=== PATIENT | female | born 1990 | race Caucasian/White ===

== ENCOUNTER → 2019-06-22 16:13 | Outpatient (BNVA) | payer MEDICAID, SELFPAY | PROVIDERS: Family Provider Nurse Practitioner; PCP Nurse Practitioner; Visit Provider Nurse Practitioner Family | DX: N92.6 Irregular menstruation, unspecified (principal); N93.9 Abnormal uterine and vaginal bleeding, unspecified; F41.9 Anxiety disorder, unspecified | CPT/HCPCS: 81025 ==

== ENCOUNTER → 2019-10-19 12:11 | Outpatient (BNVA) | payer SELFPAY | PROVIDERS: Family Provider Nurse Practitioner; PCP Nurse Practitioner; Visit Provider Nurse Practitioner Family | DX: R20.0 Anesthesia of skin (principal); R20.2 Paresthesia of skin; R42 Dizziness and giddiness; F41.9 Anxiety disorder, unspecified; R06.02 Shortness of breath; M25.50 Pain in unspecified joint; I10 Essential (primary) hypertension | CPT/HCPCS: 80053; 82607; 83735; 84443; 84702; 85025; 85379; 85651; 86140 ==

== ENCOUNTER 2019-10-20 13:41 | Emergency (ER) | payer SELFPAY ==
[2019-10-20] VITALS (7 sets, daily range): BP systolic 123–171; BP diastolic 77–103; PULSE 73–88; RESP 16–18; TEMP 36.7; O2SAT 97–98; BMI 37.0
--- NOTE | 2019-10-20 14:00 | CTR_ITS ---
PROCEDURE INFORMATION: Exam: CT Head Without Contrast Exam date and time: 10/20/2019 4:19 PM Age: 29 years old Clinical indication: Pain; Headache not specified; Patient HX: C/ intermittent R facial numbness and PALOMARES x 1 week - started new meds TECHNIQUE: Imaging protocol: Computed tomography of the head without contrast. Axial, coronal and sagittal reformatted images were created and reviewed. Radiation optimization: All CT scans at this facility use at least one of these dose optimization techniques: automated exposure control; mA and/or kV adjustment per patient size (includes targeted exams where dose is matched to clinical indication); or iterative reconstruction. COMPARISON: No relevant prior studies available. RADIATION DOSE METRICS: Total DLP: 827.21 mGy-cm FINDINGS: Brain: No CT evidence of acute intracranial hemorrhage or acute territorial infarction. No significant mass effect or midline shift. Basal cisterns patent. Ventricles: Normal in size and configuration. Cavum septum pellucidum. Bones/joints: No acute osseous abnormality. Sinuses: Minimal ethmoid and left maxillary sinus mucosal thickening.. Mastoid air cells: Grossly unremarkable. Soft tissues: Grossly unremarkable. CT/CT head wo con* [id number] IMPRESSION: 1. No CT evidence of acute intracranial pathology. 2. Additional findings, as above. Radiation Dose CTDIVOL = (mGy): DLP = 827.21 (mGy-cm)
--- NOTE | 2019-10-20 14:02 | W.ED.GENADLT ---
Documented by User: KATALINA Mclean 10/20/19 14:04 HPI - General Adult General: Chief complaint: General Medical Stated complaint: NUMBNESS/NEW BP MED Time Seen by Provider: 10/20/19 13:46 History of Present Illness: HPI narrative: Patient complains about numbness right side of her face body last few days was seen by her provider yesterday was started on fluoxetine for anxiety test were ordered patient waiting those test patient blood pressure is up to so she started her on blood pressure medication patient says numbness down the right side of face is worse today Onset (ago): day(s) Location: face Associated symptoms: Reports other (Anxiety hypertension); Deny chest pain, dyspnea, headache(s), nausea, rash or vomiting Review of Systems Const: Denies: fever(s), chills or body aches Eyes: Denies: change in vision or blurry vision ENMT: Denies: throat pain or nasal congestion Card: Denies: chest pain or dyspnea on exertion Resp: Denies: dyspnea, productive cough or non-productive cough GI: Denies: abdominal pain, nausea or vomiting Musc: Denies: extremity pain Skin/Breast: Denies: rash Neuro: Reports: other (Complains of numb-like feeling in her face down the right side of her body at times numbness and goes worse the last few hours); Denies: headache(s) Psych: Denies: anxiety or depression Guillaume/Lymph: Denies: easy bruising PFSH ED PFSH: Social History (Updated 10/19/19 @ 11:04 by Lotus Joseph LPN, RT) Smoking and tobacco status: former smoker Quit status (tobacco): has quit using tobacco Year quit tobacco: 2016 Former quit date comment: smoked 0.25 PPD x 15 yrs Second hand smoke exposure: Yes Alcohol intake: never Lives independently: Yes Household members: spouse and children Marital status: Current occupational status: employed Current occupation: [employer] History of recent travel: No Current gender identity: Female Special carmelina needs: No Agree to transfusion: Yes Physical Exam Const: COMMON NORMALS: no acute distress, average body habitus and patient oriented x3 HENMT: COMMON NORMALS: normocephalic HEAD & SCALP: normal to inspection and normocephalic FACE & SINUS: normal facial exam Eye: COMMON NORMALS: conjunctivae normal GENERAL EYE: appearance normal, both eyes and all related structures CONJUNCTIVA: Yes conjunctivae normal Neck/C-Spine: COMMON NORMALS: no JVD Chest: COMMONS NORMALS: normal inspection of the chest Resp: COMMON NORMALS: normal respiratory effort and clear to auscultation bilaterally AUSCULTATION: clear to auscultation bilaterally Cardio: COMMON NORMALS: no JVD, regular rate and regular rhythm RATE: regular rate RHYTHM: regular rhythm GI: COMMON NORMALS: Normal to inspection, nondistended, normoactive bowel sounds present Extremity: COMMON NORMALS: normal to inspection and full ROM Neuro: COMMON NORMALS: patient oriented x3, CN's II-XII intact bilaterally, moves all extremities, no focal motor deficits, no sensory deficits noted and gait normal Course Vital Signs: Vital signs: Vital Signs Temperature 98.0 F 10/20/19 13:46 Pulse Rate 73 10/20/19 17:41 Respiratory Rate 17 10/20/19 17:41 Blood Pressure 132/79 10/20/19 17:41 Pulse Oximetry 97 10/20/19 17:41 [facility] - General Adult Lab Data: Labs: Lab Results 10/20/19 10/20/19 10/20/19 Range/Units 13:55 13:55 14:20 WBC 6.9 (4.0-10.0) 10^3/ uL RBC 5.42 H (4.1-5.3) 10^6/u L Hgb 14.0 (11.5-15.3) g/dL Hct 43.4 (37.0-47.0) % MCV 80.1 L (81-99) fL MCH 25.8 L (28.0-34.0) pg MCHC 32.3 (30.0-36.0) g/dL RDW 13.5 (12.1-15.1) % Plt Count 268 (130-400) 10^3/c mm MPV 10.4 (7.4-10.4) fL Neut % (Auto) 57.5 % Lymph % (Auto) 32.1 % [place] % (Auto) 8.4 % Eos % (Auto) 1.2 % Baso % (Auto) 0.4 % Neut # (Auto) 4.0 (1.8-7.7) 10^3/u L Lymph # (Auto) 2.2 (0.8-4.8) 10^3/u L [place] # (Auto) 0.6 (0.2-0.9) 10^3/u L Eos # (Auto) 0.1 (0.0-0.8) 10^3/u L Baso # (Auto) 0.0 (0.0-0.1) 10^3/u L Nucleated RBC % (a uto) 0 % Nucleated RBCs # 0.0 /100WBC Sodium 138 (136-145) mmol/L Potassium 4.1 (3.5-5.1) mmol/L Chloride 103 (98-107) mmol/L Carbon Dioxide 22 (22-29) mmol/L Anion Gap 17.1 (5-19) BUN 9 (6-20) mg/dL Creatinine 0.6 (0.5-0.9) mg/dL GFR Calculation 116.6 (90-130) mL/min Glucose 98 (65-115) mg/dL Calculated Osmolal ity 282 L (285-295) mOsm/k g Calcium 9.8 (8.5-10.5) mg/dL Total Bilirubin 0.4 (0.15-1.2) mg/dL AST 19 (0-32) U/L ALT 22 (0-33) U/L Alkaline Phosphata se 59 (35-105) IU/L Total Protein 7.6 (6.6-8.7) g/dL Albumin 5.0 (3.5-5.2) g/dL Globulin 2.6 (1.3-4.6) g/dL HCG, Qual (Negative) Urine Color Yellow (Yellow) Urine Appearance Hazy A (CLEAR) Urine pH 5 (5-7) Ur Specific Gravit y 1.025 (1.005-1.030) Urine Protein Neg (Negative) Urine Glucose (UA) Norm (Normal) Urine Ketones 2+ H (Negative) Urine Blood Neg (Negative) Urine Nitrate Negative (Negative) Urine Bilirubin Neg (NEGATIVE) Urine Urobilinogen 1 H (Negative) mg/dL Ur Leukocyte Anahi ase 2+ H (Negative) Urine RBC None (0-2) /hpf Urine WBC 15-25 H (0-5) /hpf Ur Squamous Epith Cells 25-40 H (0-5) Urine Bacteria 2+ H (NONE) 06/13/20 Range/Units 14:20 WBC (4.0-10.0) 10^3/ uL RBC (4.1-5.3) 10^6/u L Hgb (11.5-15.3) g/dL Hct (37.0-47.0) % MCV (81-99) fL MCH (28.0-34.0) pg MCHC (30.0-36.0) g/dL RDW (12.1-15.1) % Plt Count (130-400) 10^3/c mm MPV (7.4-10.4) fL Neut % (Auto) % Lymph % (Auto) % [place] % (Auto) % Eos % (Auto) % Baso % (Auto) % Neut # (Auto) (1.8-7.7) 10^3/u L Lymph # (Auto) (0.8-4.8) 10^3/u L [place] # (Auto) (0.2-0.9) 10^3/u L Eos # (Auto) (0.0-0.8) 10^3/u L Baso # (Auto) (0.0-0.1) 10^3/u L Nucleated RBC % (a uto) % Nucleated RBCs # /100WBC Sodium (136-145) mmol/L Potassium (3.5-5.1) mmol/L Chloride (98-107) mmol/L Carbon Dioxide (22-29) mmol/L Anion Gap (5-19) BUN (6-20) mg/dL Creatinine (0.5-0.9) mg/dL GFR Calculation (90-130) mL/min Glucose (65-115) mg/dL Calculated Osmolal ity (285-295) mOsm/k g Calcium (8.5-10.5) mg/dL Total Bilirubin (0.15-1.2) mg/dL AST (0-32) U/L ALT (0-33) U/L Alkaline Phosphata se (35-105) IU/L Total Protein (6.6-8.7) g/dL Albumin (3.5-5.2) g/dL Globulin (1.3-4.6) g/dL HCG, Qual Negative (Negative) Urine Color (Yellow) Urine Appearance (CLEAR) Urine pH (5-7) Ur Specific Gravit y (1.005-1.030) Urine Protein (Negative) Urine Glucose (UA) (Normal) Urine Ketones (Negative) Urine Blood (Negative) Urine Nitrate (Negative) Urine Bilirubin (NEGATIVE) Urine Urobilinogen (Negative) mg/dL Ur Leukocyte Anahi ase (Negative) Urine RBC (0-2) /hpf Urine WBC (0-5) /hpf Ur Squamous Epith Cells (0-5) Urine Bacteria (NONE) Discharge Plan Discharge Patient Disposition: Home, Self-Care Clinical Impression: Numbness and tingling Condition: Stable Prescriptions: No Action metoprolol succinate 50 mg tablet extended release 24 hr 50 mg PO DAILY Qty: 30 RF: 2 hydroxyzine HCl 50 mg tablet 50 mg PO TID PRN (Reason: anxiety) Qty: 20 RF: 0 fluoxetine [Prozac] 20 mg capsule 20 mg PO DAILY Qty: 30 RF: 2 norgestimate-ethinyl estradiol [Sprintec (28)] 0.25-35 mg-mcg tablet 1 tab PO DAILY Qty: 28 RF: 9 Discharge Orders: Discharge Order (Routine); Ordered 10/20/19 Ordered By: Gonzalez Garcia Referrals: Kari Brown FNP-C [Primary Care Provider] - Discharge Diet: Usual diet Discharge Activity: Increase activity as tolerated Activity Restrictions/Additional Instructions: Continue with routine medications. Drink plenty of water. Follow-up with primary care on Tuesday. Return to the ER for worsening symptoms or new concerns. Coding Level of Care Code ED Die Attacher for Chg Fwd Exam Comprehensive Documented by User: KATALINA West 10/20/19 18:06 HPI - General Adult General: Chief complaint: General Medical Stated complaint: NUMBNESS/NEW BP MED Time Seen by Provider: 10/20/19 13:46 PFSH ED PFSH: Social History (Updated 10/19/19 @ 11:04 by Lotus Young, CHIP MACHINE OPERATOR, RT) Smoking and tobacco status: former smoker Quit status (tobacco): has quit using tobacco Year quit tobacco: 2016 Former quit date comment: smoked 0.25 PPD x 15 yrs Second hand smoke exposure: Yes Alcohol intake: never Lives independently: Yes Household members: spouse and children Marital status: Current occupational status: employed Current occupation: [employer] History of recent travel: No Current gender identity: Female Special carmelina needs: No Agree to transfusion: Yes Course ED course: 1700, received patient from Donta Smith, nurse practitioner, we are awaiting CT scan of the head to rule out any brain pathology such as tumor, or hemorrhage. Patient is expected to be discharged to home with follow-up. Patient is resting well without any difficulty at this time. wjw Vital Signs: Vital signs: Vital Signs Temperature 98.0 F 10/20/19 13:46 Pulse Rate 73 10/20/19 17:41 Respiratory Rate 17 10/20/19 17:41 Blood Pressure 132/79 10/20/19 17:41 Pulse Oximetry 97 10/20/19 17:41 MDM - General Adult MDM Narrative: Medical decision making narrative: Patient was brought in today for concerns of numbness and tingling. Patient been having the symptoms for about 2 weeks. Exam noted no significant focal neural deficits or abnormalities. Vital signs were normal except for some mild hypertension on arrival. Differential diagnosis included tumor, hemorrhage, anxiety, depression, malingering. CT scan of the head was normal. Laboratory values were normal. Reviewed exam with patient recommended continuation of routine medications as directed. And follow-up with primary care on Tuesday for evaluation and consideration for further treatment. Lab Data: Labs: Lab Results 10/20/19 10/20/19 10/20/19 Range/Units 13:55 13:55 14:20 WBC 6.9 (4.0-10.0) 10^3/ uL RBC 5.42 H (4.1-5.3) 10^6/u L Hgb 14.0 (11.5-15.3) g/dL Hct 43.4 (37.0-47.0) % MCV 80.1 L (81-99) fL MCH 25.8 L (28.0-34.0) pg MCHC 32.3 (30.0-36.0) g/dL RDW 13.5 (12.1-15.1) % Plt Count 268 (130-400) 10^3/c mm MPV 10.4 (7.4-10.4) fL Neut % (Auto) 57.5 % Lymph % (Auto) 32.1 % [place] % (Auto) 8.4 % Eos % (Auto) 1.2 % Baso % (Auto) 0.4 % Neut # (Auto) 4.0 (1.8-7.7) 10^3/u L Lymph # (Auto) 2.2 (0.8-4.8) 10^3/u L [place] # (Auto) 0.6 (0.2-0.9) 10^3/u L Eos # (Auto) 0.1 (0.0-0.8) 10^3/u L Baso # (Auto) 0.0 (0.0-0.1) 10^3/u L Nucleated RBC % (a uto) 0 % Nucleated RBCs # 0.0 /100WBC Sodium 138 (136-145) mmol/L Potassium 4.1 (3.5-5.1) mmol/L Chloride 103 (98-107) mmol/L Carbon Dioxide 22 (22-29) mmol/L Anion Gap 17.1 (5-19) BUN 9 (6-20) mg/dL Creatinine 0.6 (0.5-0.9) mg/dL GFR Calculation 116.6 (90-130) mL/min Glucose 98 (65-115) mg/dL Calculated Osmolal ity 282 L (285-295) mOsm/k g Calcium 9.8 (8.5-10.5) mg/dL Total Bilirubin 0.4 (0.15-1.2) mg/dL AST 19 (0-32) U/L ALT 22 (0-33) U/L Alkaline Phosphata se 59 (35-105) IU/L Total Protein 7.6 (6.6-8.7) g/dL Albumin 5.0 (3.5-5.2) g/dL Globulin 2.6 (1.3-4.6) g/dL HCG, Qual (Negative) Urine Color Yellow (Yellow) Urine Appearance Hazy A (CLEAR) Urine pH 5 (5-7) Ur Specific Gravit y 1.025 (1.005-1.030) Urine Protein Neg (Negative) Urine Glucose (UA) Norm (Normal) Urine Ketones 2+ H (Negative) Urine Blood Neg (Negative) Urine Nitrate Negative (Negative) Urine Bilirubin Neg (NEGATIVE) Urine Urobilinogen 1 H (Negative) mg/dL Ur Leukocyte Anahi ase 2+ H (Negative) Urine RBC None (0-2) /hpf Urine WBC 15-25 H (0-5) /hpf Ur Squamous Epith Cells 25-40 H (0-5) Urine Bacteria 2+ H (NONE) 10/20/19 Range/Units 14:20 WBC (4.0-10.0) 10^3/ uL RBC (4.1-5.3) 10^6/u L Hgb (11.5-15.3) g/dL Hct (37.0-47.0) % MCV (81-99) fL MCH (28.0-34.0) pg MCHC (30.0-36.0) g/dL RDW (12.1-15.1) % Plt Count (130-400) 10^3/c mm MPV (7.4-10.4) fL Neut % (Auto) % Lymph % (Auto) % [place] % (Auto) % Eos % (Auto) % Baso % (Auto) % Neut # (Auto) (1.8-7.7) 10^3/u L Lymph # (Auto) (0.8-4.8) 10^3/u L [place] # (Auto) (0.2-0.9) 10^3/u L Eos # (Auto) (0.0-0.8) 10^3/u L Baso # (Auto) (0.0-0.1) 10^3/u L Nucleated RBC % (a uto) % Nucleated RBCs # /100WBC Sodium (136-145) mmol/L Potassium (3.5-5.1) mmol/L Chloride (98-107) mmol/L Carbon Dioxide (22-29) mmol/L Anion Gap (5-19) BUN (6-20) mg/dL Creatinine (0.5-0.9) mg/dL GFR Calculation (90-130) mL/min Glucose (65-115) mg/dL Calculated Osmolal ity (285-295) mOsm/k g Calcium (8.5-10.5) mg/dL Total Bilirubin (0.15-1.2) mg/dL AST (0-32) U/L ALT (0-33) U/L Alkaline Phosphata se (35-105) IU/L Total Protein (6.6-8.7) g/dL Albumin (3.5-5.2) g/dL Globulin (1.3-4.6) g/dL HCG, Qual Negative (Negative) Urine Color (Yellow) Urine Appearance (CLEAR) Urine pH (5-7) Ur Specific Gravit y (1.005-1.030) Urine Protein (Negative) Urine Glucose (UA) (Normal) Urine Ketones (Negative) Urine Blood (Negative) Urine Nitrate (Negative) Urine Bilirubin (NEGATIVE) Urine Urobilinogen (Negative) mg/dL Ur Leukocyte Anahi ase (Negative) Urine RBC (0-2) /hpf Urine WBC (0-5) /hpf Ur Squamous Epith Cells (0-5) Urine Bacteria (NONE) Discharge Plan Discharge Patient Disposition: Home, Self-Care Clinical Impression: Numbness and tingling Condition: Stable Prescriptions: No Action metoprolol succinate 50 mg tablet extended release 24 hr 50 mg PO DAILY Qty: 30 RF: 2 hydroxyzine HCl 50 mg tablet 50 mg PO TID PRN (Reason: anxiety) Qty: 20 RF: 0 fluoxetine [Prozac] 20 mg capsule 20 mg PO DAILY Qty: 30 RF: 2 norgestimate-ethinyl estradiol [Sprintec (28)] 0.25-35 mg-mcg tablet 1 tab PO DAILY Qty: 28 RF: 9 Discharge Orders: Discharge Order (Routine); Ordered 10/20/19 Ordered By: Gonzalez Garcia Referrals: Kari Brown FNP-C [Primary Care Provider] - Discharge Diet: Usual diet Discharge Activity: Increase activity as tolerated Activity Restrictions/Additional Instructions: Continue with routine medications. Drink plenty of water. Follow-up with primary care on Tuesday. Return to the ER for worsening symptoms or new concerns. Coding Level of Care Code ED Die Attacher for Porscheg Fwd Exam Comprehensive
[2019-10-20 14:15] LABS: Basophils % 0.4 %; Eosinophils # 0.1 10^3/uL (0.0-0.8); Eosinophils % 1.2 %; Hematocrit 43.4 % (37.0-47.0); Lymphocytes # 2.2 10^3/uL (0.8-4.8); Lymphocytes % 32.1 %; Mean Corpuscular HGB Conc 32.3 g/dL (30.0-36.0); Mean Corpuscular Hemoglobin 25.8 pg (28.0-34.0); Mean Corpuscular Volume 80.1 fL (81-99); Mean Platelet Volume 10.4 fL (7.4-10.4); Monocytes # 0.6 10^3/uL (0.2-0.9); Monocytes % 8.4 %; Neutrophils % 57.5 %; Nucleated Red Blood Cells % 0 %; Platelet Count 268 10^3/cmm (130-400); Red Blood Count 5.42 10^6/uL (4.1-5.3); Red Cell Distribution Width 13.5 % (12.1-15.1); White Blood Count 6.9 10^3/uL (4.0-10.0)
[2019-10-20] MEDS: LORazepam 1 mg Tablet PO (14:38)
[2019-10-20 15:13] LABS: Alanine Aminotransferase 22 U/L (0-33); Alkaline Phosphatase 59 IU/L (35-105); Anion Gap 17.1 (5-19); Aspartate Amino Transferase 19 U/L (0-32); Blood Urea Nitrogen 9 mg/dL (6-20); Calcium 9.8 mg/dL (8.5-10.5); Carbon Dioxide 22 mmol/L (22-29); Chloride 103 mmol/L (98-107); Globulin 2.6 g/dL (1.3-4.6); Glomerular Filtration Rate 116.6 mL/min (90-130); Glucose 98 mg/dL (65-115); Osmolality Calculated 282 mOsm/kg (285-295); Potassium 4.1 mmol/L (3.5-5.1); Sodium 138 mmol/L (136-145); Total Bilirubin 0.4 mg/dL (0.15-1.2); Total Protein 7.6 g/dL (6.6-8.7)
[2019-10-20 15:15] LABS: Specific Gravity, Urine 1.025 (1.005-1.030); Urine Appearance Hazy (CLEAR); Urine Color Yellow (Yellow); pH Urine 5 (5-7)
[2019-10-20 15:16] LABS: Add Urine Microscopic? YES; Bilirubin Urine Neg (NEGATIVE); Blood Urine Neg (Negative); Glucose Urine UA Norm (Normal); Ketones Urine 2+ (Negative); Leukocyte Esterase Urine 2+ (Negative); Nitrate Urine Negative (Negative); Protein Urine Neg (Negative); Urobilinogen Urine 1 mg/dL (Negative)
[2019-10-20 15:17] LABS: Add Urine Culture? No; Bacteria Urine 2+; Squamous Epithelial Cell Urine 25-40 (0-5); WBC Urine 15-25 /hpf (0-5)
[2019-10-20] MEDS: nitrofurantoin SR (BID) 100 mg Capsule PO (15:41)
[2019-10-20] MEDS: ketorolac 30 mg/mL INJ IVP (15:58)
[2019-10-20 16:59] LABS: HCG Qualitative Urine. Negative (Negative)
== END 2019-10-20 18:43 | disposition home or self-care (01) ==
PROVIDERS: Nurse Practitioner Family; Emergency Provider Nurse Practitioner Family; Family Provider Nurse Practitioner; PCP Nurse Practitioner
DX: R20.0 Anesthesia of skin (principal); Z87.891 Personal history of nicotine dependence
CPT/HCPCS: 12345; 70450; 80053; 81001; 81025; 85025; 96374; 96375; 99283; J1885

== ENCOUNTER → 2019-11-15 15:57 | Outpatient (BNVA) | payer SELFPAY | PROVIDERS: Family Provider Nurse Practitioner; PCP Nurse Practitioner; Visit Provider Nurse Practitioner Family | DX: R70.0 Elevated erythrocyte sedimentation rate (principal); R20.0 Anesthesia of skin; R20.2 Paresthesia of skin; F41.9 Anxiety disorder, unspecified; F32.9 Major depressive disorder, single episode, unspecified; I10 Essential (primary) hypertension; M25.50 Pain in unspecified joint | CPT/HCPCS: 85651; 86038; 86140; 86431 ==

== ENCOUNTER → 2020-02-12 15:28 | Outpatient (BNVA) | payer SELFPAY | PROVIDERS: Family Provider Nurse Practitioner; PCP Nurse Practitioner; Visit Provider Nurse Practitioner Family | DX: N91.2 Amenorrhea, unspecified (principal); M25.562 Pain in left knee; N93.9 Abnormal uterine and vaginal bleeding, unspecified; F41.9 Anxiety disorder, unspecified; F32.9 Major depressive disorder, single episode, unspecified | CPT/HCPCS: 81025 ==

== ENCOUNTER → 2020-03-03 10:18 | Outpatient (BNVA) | payer MEDICAID, SELFPAY | PROVIDERS: Family Provider Nurse Practitioner; PCP Nurse Practitioner; Visit Provider Obstetrics & Gynecology | DX: N97.9 Female infertility, unspecified (principal) | CPT/HCPCS: 83001; 83520; 84450 ==

== ENCOUNTER 2020-03-20 12:42 | Emergency (ER) | payer MEDICAID, SELFPAY ==
--- NOTE | 2020-03-20 12:50 | XR_ITS ---
WS: [id number] Portable AP upright chest, 03/20/2020 Clinical Data: sob Comparison: PA and lateral chest, 03/18/2017. Findings: No nodules, masses or effusions are seen. The heart is normal. The pulmonary vascularity is not increased. No pneumonia or pneumothorax is seen. XR/XR chest 1V portable [id number] Impression: Negative chest.
[2020-03-20 13:05] VITALS: BP 141/96; PULSE 96; RESP 18; TEMP 36.7; O2SAT 96; BMI 36.6
[2020-03-20 15:47] VITALS: RESP 17; O2SAT 97
[2020-03-20 15:49] VITALS: O2SAT 97
--- NOTE | 2020-03-20 16:03 | ECG_ITS ---
[facility] Test Date: 2020-03-20 Pat Name: Sunshine Carey Department: Room: Gender: Female Radiator Tester: : [id number] Requested By: Aylin Peterson Order Number: [id number] Mireya MD: Sergo Sepulveda M.D. Measurements Intervals [place] Rate: 56 P: -10 CT: 140 QRS: 17 QRSD: 91 T: 0 QT: 426 QTc: 413 Interpretive Statements SINUS BRADYCARDIA No previous ECG available for comparison Electronically Signed On 03-21-2020 20:21:35 [employer] by Sergo Sepulveda M.D. [email or web address]
--- NOTE | 2020-03-20 16:03 | W.ED.COVID ---
HPI - COVID General: Chief Complaint: COVID symptoms Stated Complaint: COVID+, WORSENING SYMPTOMS Time Seen by Provider: 03/20/20 15:10 Source: patient Mode of arrival: ambulatory Limitations: no limitations Triage information: Has fever, cough or shortness of breath. Exposure to COVID + person last 14 days History of Present Illness: MD complaint: known COVID positive Prior covid testing: yes, results known (Mandatory testing [facility], 03/17/2020) Prior testing date: 03/17/20 COVID 19 common symptoms: positive fever(s), chills, cough, non-productive cough, dyspnea, fatigue, body aches, headache(s), throat pain, nasal congestion, nausea and diarrhea COVID 19 other sytmptoms: positive chest pain (With cough) Onset (ago): day(s) (4) Severity: moderate and slowly worsening Pertinent comorbid conditions: hypertension and cancer (Hodgkin's, age 22) Treatment prior to arrival: acetaminophen COVID Results: No Data to Display Review of Systems General: Reports: 10 or more systems reviewed and unremarkable except in HPI and below Const: Reports: fever(s), chills, body aches, fatigue and malaise Eyes: Denies: blurry vision or eye redness ENMT: Reports: throat pain, nasal discharge, nasal congestion and post nasal drip Card: Reports: chest pain (With cough) and dyspnea on exertion (With cough) Resp: Reports: dyspnea, non-productive cough, wheezing, pain on inspiration and chest congestion GI: Reports: nausea and diarrhea : Denies: difficulty voiding or dysuria Musc: Denies: back pain Skin/Breast: Denies: rash, pruritus or changes in skin color Neuro: Reports: headache(s); Denies: numbness in extremities, weakness in extremities or difficulty walking Psych: Reports: anxiety and depression Guillaume/Lymph: Denies: easy bruising PFSH ED PFSH: Medical History (Updated 03/20/20 @ 16:22 by ALEENA Bowling) Hodgkin lymphoma Surgical History (Updated 03/03/20 @ 09:28 by Juana Nunn RN) Hx of cholecystectomy (~2017) Family History (Updated 03/03/20 @ 09:30 by Juana Nunn RN) Grandfather Diabetes maternal Hypertension maternal Stroke maternal Colon cancer maternal Grandmother Diabetes maternal Hypertension maternal Mother Hypertension Family/Other Colon cancer maternal great aunt Denies family history of Ovarian cancer Clotting disorder Heart disease Hyperlipidemia Breast cancer Anesthesia complication Bleeding disorder Uterine cancer Thyroid condition Social History (Updated 03/03/20 @ 09:31 by Juana Nunn RN) Smoking and tobacco status: former smoker Quit status (tobacco): has quit using tobacco Year quit tobacco: 2016 Former quit date comment: smoked 0.25 PPD x 15 yrs Second hand smoke exposure: Yes Alcohol intake: never Lives independently: Yes Marital status: Current occupation: [employer] History of recent travel: No Special carmelina needs: No Agree to transfusion: Yes Physical Exam Const: COMMON NORMALS: no acute distress, patient oriented x3, healthy appearing, alert and well nourished GENERAL APPEARANCE: cooperative, comfortable, well kempt and well hydrated; not anxious and not ill appearing NUTRITIONAL APPEARANCE: overweight ORIENTATION/CONSCIOUSNESS: Yes awake, Yes oriented to person, Yes oriented to place and Yes oriented to time HENMT: COMMON NORMALS: normocephalic, EAC's normal, Normal external nose present and moist oral mucous membranes HEAD & SCALP: normal to inspection and normocephalic FACE & SINUS: normal facial exam NOSE: Normal external nose present EXTERNAL AUDITORY CANAL: EAC's normal MOUTH: Normal oral and palatal mucosa present THROAT: posterior oropharynx normal and uvula midline Eye: COMMON NORMALS: Equal, round and reactive pupils present and EOMs intact bilaterally GENERAL EYE: appearance normal, both eyes and all related structures PUPIL: Yes Equal, round and reactive pupils present Neck/C-Spine: COMMON NORMALS: full ROM and no lymphadenopathy GENERAL: Yes normal visual inspection and Yes trachea midline CERVICAL SPINE: Yes cervical ROM normal Lymph: LYMPHATIC: no lymphadenopathy noted Chest: COMMONS NORMALS: normal inspection of the chest Resp: COMMON NORMALS: normal respiratory effort and clear to auscultation bilaterally EFFORT & INSPECTION: Yes able to speak in complete sentences AUSCULTATION: clear to auscultation bilaterally Cardio: COMMON NORMALS: regular rhythm, S1 normal heart sound present, S2 normal heart sound present and Peripheral pulses 2+ throughout RHYTHM: regular rhythm HEART SOUNDS: S1 normal heart sound present and S2 normal heart sound present PERIPHERAL PULSES: Peripheral pulses 2+ throughout GI: COMMON NORMALS: Soft to palpation and non-tender INSPECTION: Yes normal to inspection AUSCULTATION: Yes normoactive bowel sounds PALPATION: Yes Soft to palpation : COMMON NORMALS: Yes no CVA tenderness BLADDER/KIDNEY EXAM: Yes no CVA tenderness Back/Pelvis: COMMON NORMALS: no CVA tenderness and thoracic and lumbar spine normal to inspection Extremity: COMMON NORMALS: normal to inspection and capillary refill normal Neuro: COMMON NORMALS: patient oriented x3 and no focal motor deficits SENSORIUM/ORIENTATION: Yes alert, Yes oriented to person, Yes oriented to place and Yes oriented to time Psych: COMMON NORMALS: mental status grossly normal, Normal thought process present and cooperative APPEARANCE: Yes well kempt ACTIVITY/MOTOR BEHAVIOR: Yes appropriate eye contact THOUGHT PROCESS: Normal thought process present Skin: COMMON NORMALS: no rashes or lesions noted and turgor normal GENERAL SKIN EXAM: no rashes or lesions noted and turgor normal Course ED course: Continuous oxygen monitoring with oxygen saturation 98 to 100%. Vital Signs: Vital signs: Vital Signs Temperature 98.1 F 03/20/20 13:05 Pulse Rate 96 03/20/20 13:05 Respiratory Rate 16 03/20/20 16:47 Blood Pressure 141/96 03/20/20 13:05 Pulse Oximetry 97 03/20/20 16:47 MDM - COVID Lab Data COVID Results: No Data to Display Imaging Data CXR: Radiologist's impression: [place] [address] XRay Report Signed Patient: Sunshine Carey Unit #: [id number] : 1990 Age/Sex: 29 / F ADM Date: 03/20/20 Loc: ER Room/Bed: Attending Dr: Ordering Provider/Ordering MD: Cheryl Bundy MD Date of Service: 03/20/20 Procedure(s): XR chest 1V portable [id number] Accession Number(s): [id number] Report Number: [id number] WS: [id number] Portable AP upright chest, 03/20/2020 Clinical Data: sob Comparison: PA and lateral chest, 03/18/2017. Findings: No nodules, masses or effusions are seen. The heart is normal. The pulmonary vascularity is not increased. No pneumonia or pneumothorax is seen. XR/XR chest 1V portable [id number] Impression: Negative chest. Dictated By: Judith Blas MD Signed By: Judith Blas MD Signed Date/Time: 03/20/20 1325 DD/ 1324 EKG Data EKG 1: EKG interpretation date: 03/20/20 EKG interpretation time: 16:15 Computer generated interpretation: Sinus bradycardia, borderline ECG Discharge Plan Discharge Patient Disposition: Home Clinical Impression: COVID-19, Acute bronchitis due to COVID-19 virus Condition: Stable Prescriptions: New Zofran 4 mg tablet 4 mg PO Q4-5H PRN (Reason: nausea and vomiting) 4 Days Qty: 10 RF: 0 Ventolin HFA 90 mcg/actuation HFA aerosol inhaler 2 puff INHALATION Q4H PRN (Reason: shortness of breath or wheezing) Qty: 18 RF: 0 No Action metoprolol succinate 50 mg tablet extended release 24 hr 50 mg PO DAILY Qty: 90 RF: 1 fluoxetine [Prozac] 20 mg capsule 20 mg PO BID Qty: 180 RF: 1 buspirone 10 mg tablet 10 mg PO BID Qty: 60 RF: 2 celecoxib [Celebrex] 100 mg capsule 100 mg PO BID Qty: 60 RF: 2 Discharge Orders: Discharge Order (Routine); Ordered 03/20/20 Ordered By: Aylin Adkins Referrals: Kari Brown, [facility] [Primary Care Provider] - Discharge Diet: Advance as tolerated and Clear Liquid Discharge Activity: Limit activity as instructed Patient Instructions: Acute Bronchitis (ED), Viral Syndrome (ED) Activity Restrictions/Additional Instructions: Continue quarantine for 10 days as directed by health department Return to the emergency department if your oxygen level drops below 91% If oxygen level starts to fall, take in deep breaths Push fluids, decreased appetite is to be expected Continue Celebrex twice daily as directed Continue Tylenol as needed [id number] for pain/fever You are to rest at home, avoid strenuous activity as this will exacerbate symptoms. Return to the emergency department if you develop nausea vomiting, inability to control fever despite use of Zofran Return the emergency department if you develop chest pain, increased shortness of breath or inability to catch your breath. 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
[2020-03-20 16:47] VITALS: RESP 16; O2SAT 97
== END 2020-03-20 16:49 | disposition home or self-care (01) ==
PROVIDERS: Emergency Provider Nurse Practitioner Family; PCP Nurse Practitioner
DX: U07.1 COVID-19 (principal); J20.8 Acute bronchitis due to other specified organisms; Z85.71 Personal history of Hodgkin lymphoma; Z87.891 Personal history of nicotine dependence
CPT/HCPCS: 12345; 71045; 93005; 99281; 99283

== ENCOUNTER → 2020-05-20 16:38 | Outpatient (BNVA) | payer SELFPAY | PROVIDERS: PCP Nurse Practitioner; Visit Provider Nurse Practitioner Family | DX: R06.02 Shortness of breath (principal); M25.50 Pain in unspecified joint; I10 Essential (primary) hypertension; R53.82 Chronic fatigue, unspecified; F41.9 Anxiety disorder, unspecified; F32.9 Major depressive disorder, single episode, unspecified | CPT/HCPCS: 80053; 82306; 82607; 83735; 84443; 84550; 85025; 85651; 86038; 86140; 86431 ==

== ENCOUNTER → 2021-02-27 12:22 | Outpatient (BNVA) | payer MEDICAID, SELFPAY | PROVIDERS: PCP Nurse Practitioner; Visit Provider Nurse Practitioner Family | DX: F41.9 Anxiety disorder, unspecified (principal); R53.82 Chronic fatigue, unspecified; F32.9 Major depressive disorder, single episode, unspecified; R70.0 Elevated erythrocyte sedimentation rate; I10 Essential (primary) hypertension; R42 Dizziness and giddiness; R20.0 Anesthesia of skin; R20.2 Paresthesia of skin; M25.50 Pain in unspecified joint; J20.8 Acute bronchitis due to other specified organisms; M25.562 Pain in left knee | CPT/HCPCS: 80053; 80061; 82306; 82607; 85025; 85651 ==

== ENCOUNTER → 2022-01-19 13:20 | Outpatient (BNVA) | payer SELFPAY | PROVIDERS: PCP Nurse Practitioner Family; Visit Provider Nurse Practitioner Family | DX: I10 Essential (primary) hypertension (principal); E55.9 Vitamin D deficiency, unspecified; F41.9 Anxiety disorder, unspecified; F32.9 Major depressive disorder, single episode, unspecified; K08.89 Other specified disorders of teeth and supporting structures | CPT/HCPCS: 80053; 80061; 82306; 82607; 84443; 85025 ==

== ENCOUNTER → 2022-11-08 11:25 | Outpatient (BNVA) | payer SELFPAY | PROVIDERS: PCP Nurse Practitioner Family; Visit Provider Family Medicine | DX: R10.9 Unspecified abdominal pain (principal); T14.8XXA Other injury of unspecified body region, initial encounter; W57.XXXA Bitten or stung by nonvenomous insect and other nonvenomous arthropods, initial encounter | CPT/HCPCS: 86003; 86008 ==

== ENCOUNTER → 2023-01-18 08:49 | Outpatient (BNVA) | payer SELFPAY | PROVIDERS: PCP Nurse Practitioner Family; Visit Provider Dermatology | DX: Z01.89 Encounter for other specified special examinations (principal) ==

== ENCOUNTER → 2023-02-09 11:17 | Outpatient (BNVA) | payer SELFPAY | PROVIDERS: PCP Nurse Practitioner Family; Visit Provider Nurse Practitioner Family | DX: R79.89 Other specified abnormal findings of blood chemistry (principal) | CPT/HCPCS: 86705; 86706; 86709; 86803; 87340 ==

== ENCOUNTER → 2023-03-07 11:14 | Outpatient (BNVA) | payer SELFPAY | PROVIDERS: PCP Nurse Practitioner Family; Visit Provider Nurse Practitioner Family | DX: M25.562 Pain in left knee (principal) | CPT/HCPCS: 73562 ==

== ENCOUNTER → 2023-08-01 16:55 | Outpatient (BNVA) | payer SELFPAY | PROVIDERS: PCP Nurse Practitioner Family; Visit Provider Nurse Practitioner Family | DX: K04.7 Periapical abscess without sinus (principal); M54.50 Low back pain, unspecified; G89.29 Other chronic pain; Z91.018 Allergy to other foods; Z79.899 Other long term (current) drug therapy | CPT/HCPCS: 86003; 86008 ==

== ENCOUNTER → 2023-09-29 10:12 | Outpatient (BNVA) | payer SELFPAY | PROVIDERS: PCP Nurse Practitioner Family; Visit Provider Family Medicine | DX: T14.8XXA Other injury of unspecified body region, initial encounter (principal); W57.XXXA Bitten or stung by nonvenomous insect and other nonvenomous arthropods, initial encounter | CPT/HCPCS: 86618; 86666; 86757 ==

== ENCOUNTER → 2024-11-22 12:42 | Outpatient (BNVA) | payer OTHER, SELFPAY | PROVIDERS: PCP Nurse Practitioner Family; Visit Provider Nurse Practitioner Family | DX: Z91.018 Allergy to other foods (principal); M25.50 Pain in unspecified joint; I10 Essential (primary) hypertension; E55.9 Vitamin D deficiency, unspecified | CPT/HCPCS: 80053; 80061; 82306; 82607; 84443; 85025; 85651; 86003; 86008; 86140; 86160; 86162; 86200; 86235; 86255; 86376; 86431 ==

== ENCOUNTER → 2025-04-30 10:13 | Outpatient (BNVA) | payer OTHER, SELFPAY | PROVIDERS: PCP Nurse Practitioner Family; Referring Provider Nurse Practitioner Family; Visit Provider Internal Medicine Rheumatology | DX: M25.59 Pain in other specified joint (principal); M51.362 Other intervertebral disc degeneration, lumbar region with discogenic back pain and lower extremity pain | CPT/HCPCS: 36415; 72040; 72100; 72170; 80076; 82306; 82565; 83520; 85025; 85651; 86140; 86480; 86812 ==